=== PATIENT | male | born 1990 | race American Indian/Alaskan Native ===

== ENCOUNTER 2021-10-09 00:30 | Emergency (ER) | payer SELFPAY ==
[2021-10-09 03:12] LABS: Bacteria,Urine 1+ /HPF (Negative)
[2021-10-09 03:24] LABS: Bilirubin,Urine Small (Negative); Color,Urine Amber (Yellow)
[2021-10-09 03:25] LABS: Blood,Urine Negative (Negative); Protein,Urine >500 mg/dL (Negative)
[2021-10-09 03:29] LABS: Ictotest,Urine Negative (Negative)
[2021-10-09 03:44] LABS: Mucus,Urine FEW /HPF; RBC,Urine < 1.0 /HPF (0.0-6.0); WBC,Urine < 1.0 /HPF (0.0-6.0)
--- NOTE | 2021-10-09 08:00 | Emergency Department Report ---
ED Dysuria HPI - HPI Chief Complaint: Urogenital-Male Stated Complaint: BLOOD IN URINE Time Seen by Provider: 10/09/21 07:58 Duration: 2 Days Location of Discomfort: Other Severity: Mild Symptoms: Dysuria: No, Frequency: No, Suprapubic Pain: No, Flank Pain: No, Fever: No, Hematuria: Yes, Abdominal Pain: No, Previous UTI's: No Other History: 30 YO COMES TO ER WITH REPORTS HEMATURIA P FREQUENT MASTURBATION. NO ABD PAIN. NO FLANK PAIN. NO FEVER OR CHILLS. NO N/V/D ED Review of Systems ROS: Stated complaint: BLOOD IN URINE Other details as noted in HPI Comment: All other systems reviewed and negative ED Past Medical Hx - Past Medical History Previous Medical History?: Yes Hx Asthma: Yes - Surgical History Past Surgical History?: Yes Hx Appendectomy: Yes - Family History Family history: no significant - Social History Smoking Status: Never Smoker Substance Use Type: None - Medications Home Medications: Home Medications Medication Instructions Recorded Confirmed Last Taken Type DOXYCYCLINE Hyclate [Vibramycin 100 mg PO Q12HR #20 capsule 10/09/21 Unknown Rx CAP] Dysuria Exam - Exam General: Vital signs noted. No distress. Alert and acting appropriately. Exam: Yes Moist Mucous Membranes, No CVA Tenderness, No Abdominal Tenderness, No Rigidity or Guarding Labs: Lab Results 10/09/21 Range/Units 02:51 Urine Color Lana (Yellow) Urine Turbidity Clear (Clear) Urine pH 6.0 (5.0-7.0) Ur Specific [place] 1.010 (1.003-1.030) Urine Protein >500 (Negative) mg/dL Urine Glucose (UA) Negative (Negative) mg/dL Urine Ketones Negative (Negative) mg/dL Urine Blood Negative (Negative) Urine Nitrite Positive (Negative) Ur Reducing Substances Not Reportable Urine Bilirubin Small (Negative) Urine Ictotest Negative (Negative) Urine Urobilinogen 4.0 (<2.0) mg/dL Ur Leukocyte Esterase Negative (Negative) Urine WBC (Auto) < 1.0 (0.0-6.0) /HPF Urine RBC (Auto) < 1.0 (0.0-6.0) /HPF U Epithel Cells (Auto) < 1.0 (0-13.0) /HPF Urine Bacteria (Auto) 1+ (Negative) /HPF Urine Mucus Few /HPF ED Course Vital Signs 02/09/22 04:38 Temperature 98.3 F Pulse Rate 73 Respiratory 20 Rate Blood Pressure 139/98 [Right] O2 Sat by Pulse 100 Oximetry ED Medical Decision Making - Medical Decision Making Lab Results 10/09/21 Range/Units 02:51 Urine Color Lana (Yellow) Urine Turbidity Clear (Clear) Urine pH 6.0 (5.0-7.0) Ur Specific [place] 1.010 (1.003-1.030) Urine Protein >500 (Negative) mg/dL Urine Glucose (UA) Negative (Negative) mg/dL Urine Ketones Negative (Negative) mg/dL Urine Blood Negative (Negative) Urine Nitrite Positive (Negative) Ur Reducing Substances Not Reportable Urine Bilirubin Small (Negative) Urine Ictotest Negative (Negative) Urine Urobilinogen 4.0 (<2.0) mg/dL Ur Leukocyte Esterase Negative (Negative) Urine WBC (Auto) < 1.0 (0.0-6.0) /HPF Urine RBC (Auto) < 1.0 (0.0-6.0) /HPF U Epithel Cells (Auto) < 1.0 (0-13.0) /HPF Urine Bacteria (Auto) 1+ (Negative) /HPF Urine Mucus Few /HPF Vital Signs 10/09/21 04:38 Temperature 98.3 F Pulse Rate 73 Respiratory 20 Rate Blood Pressure 139/98 [Right] O2 Sat by Pulse 100 Oximetry UA NOTED NITRATES IN URINE RBC NEG DC HOME ON DOXY. DC HOME WITH DC PLAN OF CARE INCLUDING DIET, ACTIVITY, MEDS, FOLLOW UP. PT VERBALIZES UNDERSTANDING OF THE PLAN OF CARE. - Differential Diagnosis HEMATURIA/ RO UTI/K STONE Critical care attestation.: If time is entered above; I have spent that time in minutes in the direct care of this critically ill patient, excluding procedure time. ED Disposition Clinical Impression: UTI (urinary tract infection) Qualifiers: Urinary tract infection type: site unspecified Disposition: 01 HOME / SELF CARE / HOMELESS Is pt being admited?: No Does the pt Need Aspirin: No Condition: Stable Instructions: Urinary Tract Infection, Adult Additional Instructions: DRINK A LOT OF WATER MED ORDERED TODAY UNTIL GONE FOLLOW UP WITH PCP WHEN MED DONE TO BE SURE THIS HAS GONE AWAY REFERRAL BELOW Prescriptions: DOXYCYCLINE Hyclate [Vibramycin CAP] 100 mg PO Q12HR #20 capsule Referrals: LAST HWANG MD [Staff Physician] - 3-5 Days Time of Disposition: 07:59
[2021-10-09 08:33] VITALS: BP 139/88
== END 2021-10-09 08:26 | disposition home or self-care (01) ==
LOC: ED 00:30
DX: N39.0 Urinary tract infection, site not specified (principal); J45.909 Unspecified asthma, uncomplicated; Z90.89 Acquired absence of other organs
CPT/HCPCS: 81001; 87086; 99283